=== PATIENT | male | born 1995 | race Caucasian/White ===

== ENCOUNTER 2016-07-25 17:05 | Emergency (ER) | payer SELFPAY ==
[~2016-07-25] VITALS: Ht 180.3 cm; Wt 115.0 kg
[~2016-07-25 17:05] MED LIST: ADVA100A INH; ALBU6.7H INH; CETI10 PO; PERM5LOT TOP; TRET45GE TOP
[2016-07-25 17:17] VITALS: BP 137/79; PULSE 117; RESP 18; TEMP 100.5; O2SAT 98
[2016-07-25 18:35] VITALS: BP 145/76; PULSE 105; RESP 16; O2SAT 100
[2016-07-25] MEDS ORDERED: IBUP800T23 PO (18:38)
[2016-07-25] MEDS ORDERED: OSEL75 PO (18:38)
--- NOTE | 2016-07-25 18:39 | PD ---
HPI . Cough and cold symptoms Chief Complaint: Cold / Flu Symptoms Time Seen by Provider: 18:29 Travel History International Travel<30 days: No Contact w/Intl Traveler<30days: No Traveled to known affect area: No History of Present Illness HPI Patient presents with a 4 day history of nasal congestion, rhinorrhea,, fever and body aches. He states that he has not been taking anything for it at home PFSH Past Medical History Medical History: Denies Significant Hx Respiratory: Yes (CHILDHOOD ASTHMA) Tetanus Vaccination: < 5 Years Influenza Vaccination: No Past Surgical History Surgical History: No Previous Surgery Social History Alcohol Use: No Tobacco Use: No Substance Use: No Allergies-Medications (Allergen,Severity, Reaction): Coded Allergies: No Known Allergies (Unverified , 07/25/16) Reported Meds & Prescriptions Reported Meds & Active Scripts Active No Active Prescriptions or Reported Medications Review of Systems Except as stated in HPI: all other systems reviewed are Neg General / Constitutional: Positive: Fever, Chills HENT: Positive: Rhinitis, Rhinorrhea, Congestion Respiratory: Positive: Cough Physical Exam Narrative GENERAL: This is a healthy-appearing young man in no acute distress. SKIN: Warm and dry. HEAD: Atraumatic. Normocephalic. EYES: Pupils equal and round. ENT: No nasal bleeding or discharge. Mucous membranes pink and moist. Nose has clear rhinorrhea. Oropharynx has no erythema, exudate, edema or tonsillar enlargement. NECK: Trachea midline. Neck is supple. CARDIOVASCULAR: Sinus tachycardia. Heart sounds normal. RESPIRATORY: No accessory muscle use. Lungs are clear with full air movement throughout. GASTROINTESTINAL: Abdomen soft, non-tender, nondistended. MUSCULOSKELETAL: No obvious deformities. No edema. NEUROLOGICAL: Awake and alert. No obvious cranial nerve deficits. Motor grossly within normal limits. Normal speech. PSYCHIATRIC: Appropriate mood and affect; insight and judgment normal. Data Data Last Documented VS Vital Signs Date Time Temp Pulse Resp B/P Pulse Ox O2 Delivery O2 Flow Rate FiO2 07/25/16 18:30 16 98 Room Air 07/25/16 17:17 100.5 117 137/79 Orders Influenzae A/B Antigen (07/25/16 17:53) MDM Medical Decision Making Medical Screen Exam Complete: Yes Emergency Medical Condition: Yes Differential Diagnosis Differential diagnosis of fever includes but is not limited to viral illness, strep throat, otitis media, pneumonia, sepsis, UTI Narrative Course Patient presents with cough and cold symptoms with fever. He had a rapid flu test done in triage which is positive. Diagnosis Primary Impression: Influenza Patient Instructions: General Instructions, Influenza (DC) Departure Forms: School Release, Work Release Additional Instructions: No work or school until you have been without fever for at least 24 hours. Med/Other Pt SpecificInfo: Prescription(s) given Scripts Ibuprofen 800 Mg Iha334 Mg PO Q8H PRN (fever and body aches) #30 TAB Ref 0 Prov:Kecia Putnam MD 07/25/16 Oseltamivir (Tamiflu)75 Mg Cap75 Mg PO BID #10 CAP Ref 0 Prov:Kecia Putnam MD 07/25/16 Disposition: 01 DISCHARGE HOME Condition: Stable Kecia Putnam MD Jul 25, 2016 18:39
== END 2016-07-25 18:50 | disposition home or self-care (01) ==
LOC: PHED 17:05 → PHEFT 18:50
DX: J11.1 Influenza due to unidentified influenza virus with other respiratory manifestations (principal); R09.81 Nasal congestion; J34.89 Other specified disorders of nose and nasal sinuses; R50.9 Fever, unspecified; M79.1 Myalgia; Z87.09 Personal history of other diseases of the respiratory system
CPT/HCPCS: 87804; 99283